=== PATIENT | male | born 1970 | race African-American/Black ===

== ENCOUNTER 2016-09-16 18:43 | Emergency (ER) | payer OTHER ==
[~2016-09-16] VITALS: Ht 177.8 cm; Wt 90.0 kg
[2016-09-16] MEDS ORDERED: METF10002 PO (19:00)
[2016-09-16] MEDS ORDERED: ALBU6.7H IH (19:00)
[2016-09-16] MEDS ORDERED: HYDROCODONE/ACETAMINOPHEN 5/325MG TABLET PO ONE (19:45)
[2016-09-16] MEDS ORDERED: KETOROLAC 60MG/2ML VIAL IM ONE (19:45)
[2016-09-16 21:20] VITALS: BP 140/84
== END 2016-09-16 22:22 | disposition home or self-care (01) ==
LOC: ER 18:46
DX: S83.402A Sprain of unspecified collateral ligament of left knee, initial encounter (principal); S51.012A Laceration without foreign body of left elbow, initial encounter; W20.8XXA Other cause of strike by thrown, projected or falling object, initial encounter; Y93.89 Activity, other specified; Y92.89 Other specified places as the place of occurrence of the external cause; E11.9 Type 2 diabetes mellitus without complications; J45.909 Unspecified asthma, uncomplicated; S80.02XA Contusion of left knee, initial encounter
CPT/HCPCS: 12001; 29505; 73562; 96372; 99284; J1885; L1830

== ENCOUNTER 2024-03-11 23:35 | Inpatient (IN) | payer BC, OTHER ==
[~2024-03-11] VITALS: Ht 172.7 cm; Wt 119.4 kg
[~2024-03-11 23:35] MED LIST: ALBU6.7H15 IH; METF-416 PO
[2024-03-12] VITALS (8 sets, daily range): BP systolic 110–137; BP diastolic 51–88; PULSE 79–101; RESP 16–18; TEMP 97–98.6; O2SAT 96–98
[2024-03-12 00:07] LABS: BASOPHILS % 0.5 % (0.0-2.0); EOSINOPHILS % 1.7 % (0.0-5.0); HEMATOCRIT. 50.9 % (42.0-52.0); HEMOGLOBIN. 16.6 g/dL (14.0-18.0); LYMPHOCYTES % 24.2 % (20.0-50.0); MEAN CORPUSCULAR HGB CONC 32.6 g/dL (31.0-37.0); MEAN PLATELET VOLUME 9.8 fl (7.4-10.4); MONOCYTES % 4.2 % (2.0-8.0); NEUTROPHILS % 69.4 % (40.0-76.0); PLATELET 298 x1000/uL (130-400); RED BLOOD CELL COUNT 5.71 mill/uL (4.7-6.1); RED CELL DISTRIBUTION WIDTH 12.9 % (11.6-14.6); WHITE BLOOD COUNT 12.4 x1000/uL (4.5-11.0)
[2024-03-12] MEDS: SODIUM CHLORIDE 0.9% 1,000 ML IV ONE (00:09)
[2024-03-12 00:16] LABS: CALCIUM 9.6 mg/dL (8.7-10.4); CARBON DIOXIDE 28 mEq/L (21-32); CHLORIDE 98 mEq/L (98-107); POTASSIUM 5.6 mEq/L (3.5-5.1); SODIUM 133 mEq/L (136-145)
[2024-03-12 00:19] LABS: CREATININE 1.7 mg/dL (0.6-1.3)
[2024-03-12 00:20] LABS: TROPONIN I HIGH SENSITIVITY 50 ng/L (3.0-53); UREA NITROGEN BLOOD 13 mg/dL (9-23)
[2024-03-12 00:21] LABS: ALANINE AMINOTRANSFERASE 19 IU/L (10-49); ALBUMIN 4.7 g/dL (3.2-4.8); ASPARTATE AMINOTRANSFERASE 24 IU/L (<34); BILIRUBIN DIRECT 0.2 mg/dL (<=3.0); LACTIC ACID 2.9 mmol/L (0.4-2.0)
[2024-03-12 00:22] LABS: BILIRUBIN TOTAL 0.9 mg/dL (0.1-1.0); PROTEIN TOTAL 8.4 g/dL (6.0-8.3)
[2024-03-12 00:54] LABS: GLUCOSE 541 mg/dL (70-105)
[2024-03-12 01:08] LABS: BETA HYDROXYBUTYRATE 0.6 mMol/L (0.0-0.3)
[2024-03-12 02:07] LABS: PROTHROMBIN TIME 11.3 sec (9.6-11.0)
[2024-03-12 02:10] LABS: LACTIC ACID 2.2 mmol/L (0.4-2.0)
[2024-03-12] MEDS: CEFTRIAXONE 1GM/50ML 50 ML IV ONE (02:22)
[2024-03-12] MEDS: LACTATED RINGERS 1,000 ML IV SCH (02:23)
[2024-03-12] MEDS: SODIUM CHLORIDE 0.9% 250 ML IV ONE (05:09)
[2024-03-12 05:57] LABS: CLARITY URINE CLEAR (CLEAR); COLOR URINE YELLOW (YELLOW); GLUCOSE URINE 3+ (NEGATIVE); KETONES URINE 1+ (NEGATIVE); LEUKOCYTE ESTERASE URINE NEGATIVE (NEGATIVE); NITRITE URINE NEGATIVE (NEGATIVE); OCCULT BLOOD URINE NEGATIVE (NEGATIVE); PROTEIN URINE NEGATIVE (NEGATIVE); SPECIFIC GRAVITY URINE 1.033 (1.005-1.030); UROBILINOGEN URINE 0.2 E.U./dL (0.2-1.0)
[2024-03-12 07:27] LABS: SQUAMOUS EPITHELIAL CELL URINE NONE SEEN /lpf (RARE/1+); WBC URINE 0-2 /hpf (0-2)
[2024-03-12 07:28] LABS: BACTERIA URINE NONE SEEN; RBC URINE 0-2 /hpf (0-2)
[2024-03-12] MEDS ORDERED: ONDANSETRON HCL 4MG/2ML INJ IV PRN (08:30)
[2024-03-12 09:38] LABS: BG BASE EXCESS -4.7 mmol/L (-2.0-2.0); BG CARBOXYHEMOGLOBIN 1.1 % (0.5-1.5); BG DEOXYHEMOGLOBIN 3.4 % (0.0-5.0); BG FRACTION INSPIRED OXYGEN 21; BG HCO3 ACT 19.5 mmol/L (22.0-26.0); BG METHEMOGLOBIN 0.3 % (0.0-1.5); BG OXYGEN SATURATION 96.6 % (92.0-98.5); BG OXYHEMOGLOBIN 95.2 % (94.0-97.0); BG PCO2 33.9 mmHg (35.0-45.0); BG PH 7.377 (7.350-7.450); BG PO2 85.8 mmHg (75.0-100.0); BG SAMPLE SITE RIGHT RADIAL; BG TOTAL HEMOGLOBIN 15.9 g/dL (12.0-18.0); BG VENT MODE ROOM AIR
[2024-03-12] MEDS: SODIUM ZIRCONIUM CYCLOSILICATE 10GM/PACKET PO NR (11:06)
[2024-03-12] MEDS: CARVEDILOL 12.5MG TABLET PO SCH (11:06)
[2024-03-12] MEDS ORDERED: NON FORMULARY PATIENT HOME MED XX SCH (11:45)
[2024-03-12] MEDS ORDERED: CLOP75TA33 PO (11:57)
[2024-03-12] MEDS ORDERED: SACU1TAB4 MT (11:57)
[2024-03-12] MEDS ORDERED: ATOR10TA69 MT (11:57)
[2024-03-12] MEDS ORDERED: EZET10TA81 PO (11:57)
[2024-03-12] MEDS ORDERED: FLUT12AE INH (11:57)
[2024-03-12] MEDS: IPRATROPIUM/ALBUTEROL 0.5-3(2.5)MG/3ML NEB HHN SCH (13:07)
[2024-03-12 13:15] LABS: CHLORIDE 103 mEq/L (98-107); POTASSIUM 3.9 mEq/L (3.5-5.1); SODIUM 136 mEq/L (136-145)
[2024-03-12 13:16] LABS: CALCIUM 8.6 mg/dL (8.7-10.4); CARBON DIOXIDE 25 mEq/L (21-32)
[2024-03-12 13:21] LABS: CREATININE 1.2 mg/dL (0.6-1.3); UREA NITROGEN BLOOD 11 mg/dL (9-23)
[2024-03-12 13:22] LABS: TROPONIN I HIGH SENSITIVITY 39 ng/L (3.0-53)
[2024-03-12 13:31] LABS: GLUCOSE 299 mg/dL (70-105)
[2024-03-12] MEDS ORDERED: DEXTROSE 50% WATER 50ML SYRINGE IV PRN (17:30)
[2024-03-12] MEDS: PIPERACILLIN/TAZO 3.375G/50ML 50 ML IV SCH (20:54)
[2024-03-12] MEDS: BLOOD SUGAR DIAGNOSTIC STRIP TEST SCH (20:55)
[2024-03-12] MEDS ORDERED: CARVEDILOL 3.125 MG TABLET PO SCH (21:00)
[2024-03-12] MEDS: INSULIN LISPRO 100 UNITS/ML SUBCUT SCH (21:08)
[2024-03-13] VITALS (9 sets, daily range): BP systolic 114–152; BP diastolic 59–97; PULSE 78–93; RESP 17–21; TEMP 96.8–98.8; O2SAT 96–99
[2024-03-13 08:18] LABS: CARBON DIOXIDE 27 mEq/L (21-32); CHLORIDE 104 mEq/L (98-107); POTASSIUM 3.6 mEq/L (3.5-5.1); SODIUM 137 mEq/L (136-145)
[2024-03-13 08:24] LABS: CREATININE 1.2 mg/dL (0.6-1.3); GLUCOSE 319 mg/dL (70-105); HEMATOCRIT 45.6 % (42.0-52.0); HEMOGLOBIN 14.7 g/dL (14.0-18.0); MEAN CORPUSCULAR HEMOGLOBIN 28.8 pg (28.0-32.0); MEAN CORPUSCULAR HGB CONC 32.2 g/dL (31.0-37.0); MEAN CORPUSCULAR VOLUME 89.4 fL (80.0-94.0); PLATELET 229 x1000/uL (130-400); UREA NITROGEN BLOOD 14 mg/dL (9-23); WHITE BLOOD COUNT 7.5 x1000/uL (4.5-11.0)
[2024-03-13] MEDS: LOSARTAN 50 MG TABLET PO SCH (12:58)
[2024-03-13] MEDS: PIPERACILLIN/TAZO 3.375G/50ML IV SCH (17:44)
[2024-03-14] VITALS (11 sets, daily range): BP systolic 116–155; BP diastolic 68–87; PULSE 71–101; RESP 17–24; TEMP 97.6–98.5; O2SAT 95–99
[2024-03-14] MEDS: INSULIN GLARGINE 100 UNITS/ML SUBCUT NR (12:46)
[2024-03-14 13:33] LABS: BASOPHILS % 0.6 % (0.0-2.0); EOSINOPHILS % 1.7 % (0.0-5.0); HEMATOCRIT. 44.3 % (42.0-52.0); HEMOGLOBIN. 14.2 g/dL (14.0-18.0); LYMPHOCYTES % 19.7 % (20.0-50.0); MEAN CORPUSCULAR HEMOGLOBIN 28.8 pg (28.0-32.0); MEAN CORPUSCULAR VOLUME 89.8 fL (80.0-94.0); MEAN PLATELET VOLUME 9.4 fl (7.4-10.4); MONOCYTES % 4.4 % (2.0-8.0); NEUTROPHILS % 73.6 % (40.0-76.0); PLATELET 207 x1000/uL (130-400); RED BLOOD CELL COUNT 4.93 mill/uL (4.7-6.1); RED CELL DISTRIBUTION WIDTH 13.2 % (11.6-14.6); WHITE BLOOD COUNT 8.7 x1000/uL (4.5-11.0)
[2024-03-14 13:34] LABS: DIFFERENTIAL COMMENT 1
[2024-03-14 13:53] LABS: CARBON DIOXIDE 27 mEq/L (21-32); CHLORIDE 105 mEq/L (98-107); POTASSIUM 4.1 mEq/L (3.5-5.1); SODIUM 136 mEq/L (136-145)
[2024-03-14 13:54] LABS: CALCIUM 8.8 mg/dL (8.7-10.4)
[2024-03-14 13:58] LABS: GLUCOSE 378 mg/dL (70-105)
[2024-03-14 13:59] LABS: UREA NITROGEN BLOOD 12 mg/dL (9-23)
[2024-03-14 14:00] LABS: ALANINE AMINOTRANSFERASE 14 IU/L (10-49); ALBUMIN 3.7 g/dL (3.2-4.8); ASPARTATE AMINOTRANSFERASE 16 IU/L (<34)
[2024-03-14 14:01] LABS: BILIRUBIN TOTAL 0.5 mg/dL (0.1-1.0); PROTEIN TOTAL 6.4 g/dL (6.0-8.3)
[2024-03-14 19:49] LABS: LACTIC ACID 2.3 mmol/L (0.4-2.0)
[2024-03-14] MEDS: INSULIN GLARGINE 100 UNITS/ML SUBCUT SCH (21:35)
[2024-03-15] VITALS (8 sets, daily range): BP systolic 122–152; BP diastolic 79–94; PULSE 85–97; RESP 16–28; TEMP 97–98; O2SAT 97–100
== END 2024-03-15 21:25 | disposition home or self-care (01) | DRG 872 ==
LOC: ER 23:35 → 5WST 03-12 03:47 → EDBEDREQ 03-12 04:15 → EDBEDREQTM 03-12 04:15 → 7EST 03-12 07:57
PROVIDERS: ADMIT Internal Medicine; ATTEND Internal Medicine
DX: A41.9 Sepsis, unspecified organism (principal); I42.9 Cardiomyopathy, unspecified; E87.20 Acidosis, unspecified; Z68.41 Body mass index [BMI] 40.0-44.9, adult; E86.0 Dehydration; E11.65 Type 2 diabetes mellitus with hyperglycemia; E78.5 Hyperlipidemia, unspecified; E87.5 Hyperkalemia; R61 Generalized hyperhidrosis; I95.2 Hypotension due to drugs; T50.995A Adverse effect of other drugs, medicaments and biological substances, initial encounter; E66.9 Obesity, unspecified; I11.0 Hypertensive heart disease with heart failure; I49.3 Ventricular premature depolarization; I50.9 Heart failure, unspecified; J45.909 Unspecified asthma, uncomplicated; Z95.810 Presence of automatic (implantable) cardiac defibrillator; Z79.899 Other long term (current) drug therapy; Y92.89 Other specified places as the place of occurrence of the external cause; Z79.02 Long term (current) use of antithrombotics/antiplatelets; Z79.84 Long term (current) use of oral hypoglycemic drugs
CPT/HCPCS: 36415; 36600; 71045; 80048; 80053; 80076; 81003; 82010; 82375; 82805; 82962; 83036; 83605; 83735; 83880; 84145; 84484; 85025; 85027; 85379; 93005; 93306; 93880; 94640; 99291; C1893; J0696; J1815; J2543; J7030; J7050